=== PATIENT | female | born 1990 | race Two or more races ===

== ENCOUNTER 2024-04-16 02:11 | Emergency (ER) | payer MEDICAID, SELFPAY ==
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
[2024-04-16 03:00] VITALS: BP 127/64; PULSE 67; RESP 19; TEMP 37.1; O2SAT 98
[2024-04-16 03:20] VITALS: BMI 26.5
== END 2024-04-16 03:28 ==
PROVIDERS: Emergency Provider Emergency Medicine; PCP Family Medicine
DX: Z02.89 Encounter for other administrative examinations (principal); S50.01XA Contusion of right elbow, initial encounter; S50.311A Abrasion of right elbow, initial encounter; V43.52XA Car driver injured in collision with other type car in traffic accident, initial encounter
CPT/HCPCS: 99281

== ENCOUNTER 2024-05-23 01:09 | Emergency (ER) | payer MEDICAID, SELFPAY ==
[2024-05-23 01:10] VITALS: BMI 25.8
[2024-05-23 02:13] VITALS: BP 118/82; PULSE 102; RESP 16; TEMP 36.8; O2SAT 99
--- NOTE | 2024-05-23 02:55 | PD.EDRME ---
Rapid Medical Screening Exam RME Arrival date/time: 05/23/24 01:09 34F with no signficant PMH presents to ED with L lower ab pain that started yesterday after she sneezed. Patient does not want to wait for US to diagnose likely hernia. She will follow-up with PCP. Chief Complaint: Abdominal Pain Time Seen by Provider: 05/23/24 02:50 Vital signs: Vital Signs Temperature 98.3 F 05/23/24 02:13 Pulse Rate 102 H 05/23/24 02:13 Respiratory Rate 16 05/23/24 02:13 Blood Pressure 118/82 05/23/24 02:13 Pulse Oximetry (%) 99 05/23/24 02:13 Oxygen Delivery Method Room Air 05/23/24 02:13
--- NOTE | 2024-05-23 02:55 | PC.NURSE ---
PT WALKED OUT OF ER AND LEFT. PER [employer] ASSISTANT PT DID NOT WANT TOP WAIT FOR ULTRASOUND, WILL GO TO PMD. PROVIDER PIPER AWARE.
== END 2024-05-23 02:55 | disposition left against medical advice (07) ==
PROVIDERS: Emergency Provider Emergency Medicine
DX: R10.32 Left lower quadrant pain (principal); Z53.29 Procedure and treatment not carried out because of patient's decision for other reasons
CPT/HCPCS: 99281